=== PATIENT | male | born 1980 | race African-American/Black ===

== ENCOUNTER 2021-11-07 02:34 | Emergency (ER) | payer MEDICAID ==
[~2021-11-07] VITALS: Ht 177.8 cm; Wt 73.0 kg
[2021-11-07] MEDS ORDERED: MORPHINE SULFATE 4 MG/ML CPJ (NOT FOR IM USE) IV STA (03:41)
[2021-11-07] MEDS ORDERED: FAMOTIDINE 20MG/2ML VIAL IV STA (03:41)
[2021-11-07] MEDS ORDERED: ONDANSETRON HCL 4MG/2ML INJ IV STA (03:41)
[2021-11-07] MEDS ORDERED: SODIUM CHLORIDE 0.9% 1,000 ML IV ONE (03:45)
[2021-11-07] MEDS ORDERED: MIDAZOLAM HCL 2 MG/2 ML VIAL IV ONE (03:45)
[2021-11-07 04:18] LABS: HEMATOCRIT. 45.4 % (42.0-52.0); HEMOGLOBIN. 15.5 g/dL (14.0-18.0); MEAN CORPUSCULAR HEMOGLOBIN 29.6 pg (28.0-32.0); MEAN CORPUSCULAR VOLUME 86.8 fL (80.0-94.0); MEAN PLATELET VOLUME 9.7 fl (7.4-10.4); PLATELET 167 x1000/uL (130-400); RED BLOOD CELL COUNT 5.23 mill/uL (4.7-6.1); RED CELL DISTRIBUTION WIDTH 13.8 % (11.6-14.6)
[2021-11-07 04:33] LABS: CHLORIDE 104 mEq/L (98-107)
[2021-11-07 04:46] LABS: PLATELET ESTIMATE NORMAL
[2021-11-07 07:23] LABS: CLARITY URINE CLEAR (CLEAR); COLOR URINE DARK YELLOW (YELLOW); KETONES URINE 3+ (NEGATIVE); LEUKOCYTE ESTERASE URINE NEGATIVE (NEGATIVE); NITRITE URINE NEGATIVE (NEGATIVE); OCCULT BLOOD URINE NEGATIVE (NEGATIVE); PH URINE 5.5 (4.5-8.0); PROTEIN URINE 2+ (NEGATIVE); SPECIFIC GRAVITY URINE 1.037 (1.005-1.030)
[2021-11-07] MEDS ORDERED: ONDA4TAB5 MT (07:38)
[2021-11-07 10:00] VITALS: BP 123/77
== END 2021-11-07 10:05 | disposition home or self-care (01) ==
LOC: ER 02:57
DX: R10.9 Unspecified abdominal pain (principal); D72.829 Elevated white blood cell count, unspecified; E87.2 Acidosis; F12.10 Cannabis abuse, uncomplicated
CPT/HCPCS: 36415; 71045; 74176; 76705; 80053; 81003; 82248; 83605; 83690; 85025; 96361; 96374; 96375; 99285; J2270; J2405; J3490; J7030

== ENCOUNTER 2022-06-17 09:54 | Emergency (ER) | payer MEDICAID, OTHER ==
[~2022-06-17] VITALS: Ht 180.3 cm; Wt 73.0 kg
[~2022-06-17 09:54] MED LIST: ONDA4TAB5 MT
[2022-06-17] MEDS ORDERED: BACITRACIN ZINC OINT UDPKT TOP ONE (10:30)
[2022-06-17] MEDS ORDERED: HYDROCODONE/ACETAMINOPHEN 5/325MG TABLET PO ONE (10:30)
[2022-06-17] MEDS ORDERED: TETANUS, DIPHTHERIA, PERTUSSIS VAC/PF 0.5ML (>10YR OLD) IM ONE (10:30)
[2022-06-17 11:18] VITALS: BP 120/74
[2022-06-17] MEDS ORDERED: TETRACAINE 0.5% OPHTH DROPS 4ML LEFTEYE ONE (11:45)
[2022-06-17] MEDS ORDERED: FLUORESCEIN SODIUM 1MG/STRIP BOTHEYE ONE (11:45)
[2022-06-17] MEDS ORDERED: HYDR-4001 MT (13:19)
[2022-06-17] MEDS ORDERED: AMOX1TAB16 MT (13:19)
== END 2022-06-17 13:49 | disposition home or self-care (01) ==
LOC: ER 09:54
DX: S02.32XA Fracture of orbital floor, left side, initial encounter for closed fracture (principal); S00.83XA Contusion of other part of head, initial encounter; S00.212A Abrasion of left eyelid and periocular area, initial encounter; F12.10 Cannabis abuse, uncomplicated; Y04.0XXA Assault by unarmed brawl or fight, initial encounter; Y93.89 Activity, other specified; Y92.89 Other specified places as the place of occurrence of the external cause
CPT/HCPCS: 70486; 90471; 90715; 99284

== ENCOUNTER 2024-04-06 13:54 | Emergency (ER) | payer BC, MEDICAID, OTHER ==
[~2024-04-06] VITALS: Ht 180.3 cm; Wt 77.0 kg
[~2024-04-06 13:54] MED LIST changes: +AMOX1TAB16 MT; +HYDR-4001 MT
[2024-04-06 13:57] VITALS: O2SAT 99
[2024-04-06 14:37] LABS: BASOPHILS % 0.3 % (0.0-2.0); HEMATOCRIT. 42.3 % (42.0-52.0); HEMOGLOBIN. 13.8 g/dL (14.0-18.0); LYMPHOCYTES % 10.2 % (20.0-50.0); MEAN CORPUSCULAR HEMOGLOBIN 30.3 pg (28.0-32.0); MEAN CORPUSCULAR HGB CONC 32.7 g/dL (31.0-37.0); MEAN CORPUSCULAR VOLUME 92.5 fL (80.0-94.0); MEAN PLATELET VOLUME 9.4 fl (7.4-10.4); MONOCYTES % 4.5 % (2.0-8.0); PLATELET 196 x1000/uL (130-400); RED BLOOD CELL COUNT 4.57 mill/uL (4.7-6.1); RED CELL DISTRIBUTION WIDTH 13.3 % (11.6-14.6); WHITE BLOOD COUNT 10.2 x1000/uL (4.5-11.0)
[2024-04-06 14:46] LABS: INR 1.1; PROTHROMBIN TIME 11.7 sec (9.6-11.0)
[2024-04-06] MEDS: FAMOTIDINE 20MG/2ML VIAL IV ONE (14:46)
[2024-04-06] MEDS: SODIUM CHLORIDE 0.9% 1,000 ML IV ONE (14:46)
[2024-04-06] MEDS: DICYCLOMINE HCL 10MG/ML 2ML VIAL IM STA (14:46)
[2024-04-06] MEDS: ONDANSETRON HCL 4MG/2ML INJ IV ONE (14:47)
[2024-04-06] MEDS: KETOROLAC 30MG/ML VIAL IV ONE (14:47)
[2024-04-06 14:50] LABS: CHLORIDE 109 mEq/L (98-107); POTASSIUM 3.5 mEq/L (3.5-5.1); SODIUM 141 mEq/L (136-145)
[2024-04-06 14:51] LABS: CALCIUM 9.6 mg/dL (8.7-10.4); CARBON DIOXIDE 24 mEq/L (21-32)
[2024-04-06 14:56] LABS: GLUCOSE 122 mg/dL (70-105); UREA NITROGEN BLOOD 10 mg/dL (9-23)
[2024-04-06 14:58] LABS: ALANINE AMINOTRANSFERASE 9 IU/L (10-49); ALBUMIN 4.5 g/dL (3.2-4.8); ASPARTATE AMINOTRANSFERASE 22 IU/L (<34); BILIRUBIN DIRECT 0.2 mg/dL (<=3.0); BILIRUBIN TOTAL 0.8 mg/dL (0.1-1.0)
[2024-04-06 14:59] LABS: PROTEIN TOTAL 7.3 g/dL (6.0-8.3)
[2024-04-06 15:12] LABS: ETHANOL BLOOD < 10 mg/dL (<10)
[2024-04-06 17:28] VITALS: BP 115/68; PULSE 60; RESP 13; TEMP 98
== END 2024-04-06 16:56 | disposition home or self-care (01) ==
LOC: ER 13:54
DX: R10.13 Epigastric pain (principal); R11.2 Nausea with vomiting, unspecified; F12.10 Cannabis abuse, uncomplicated
CPT/HCPCS: 80076; 80048; 80320; 83605; 83690; 85025; 85610; 36415; 76705; 96361; 96372; 96374; 96375; 99285; J0500; J3490; J1885; J2405; J7030; Z7610; G0480

== ENCOUNTER 2024-09-15 10:09 | Emergency (ER) | payer BC, MEDICAID ==
[~2024-09-15] VITALS: Ht 177.8 cm; Wt 75.0 kg
[2024-09-15 10:18] VITALS: O2SAT 99
[2024-09-15 13:09] VITALS: BP 112/78; PULSE 72; RESP 18; TEMP 37.00296; O2SAT 96
== END 2024-09-15 15:59 | disposition home or self-care (01) ==
LOC: ER 10:09
DX: B34.9 Viral infection, unspecified (principal); F12.90 Cannabis use, unspecified, uncomplicated
CPT/HCPCS: 71045; 99283